=== PATIENT | female | born 1965 | race Hispanic/Latino ===

== ENCOUNTER → 2022-10-11 | Outpatient (CLI) | payer BC ==
[~2022-10-11] MED LIST: GLIP10TA9 PO; LEVO75 PO; LOSA25TA41 PO; METF-446 PO; METO5TAB2 PO; MULT-40 PO; PANT40TA54 PO; PRAV20TA4 PO
[2022-10-11 16:23] LABS: BASOPHILS # (AUTO) 0.06 K/uL (0.00-0.20); BASOPHILS % (AUTO) 0.8 % (0.0-5.0); EOSINOPHILS # (AUTO) 0.15 K/uL (0.00-0.70); EOSINOPHILS % (AUTO) 1.9 % (0.0-8.0); HEMATOCRIT 38.9 % (36-48); IMMATURE GRANULOCYTE ABSOLUTE 0.02 K/uL (0-1); LYMPHOCYTES # (AUTO) 3.4 K/uL (1.0-4.8); LYMPHOCYTES % (AUTO) 42.8 % (21.0-51.0); MEAN CORPUSCULAR HEMOGLOBIN 30.4 pg (27.0-33.0); MEAN CORPUSCULAR HGB CONC 34.7 g/dL (32.0-36.0); MEAN CORPUSCULAR VOLUME 87.6 fL (79-99); MONOCYTES # (AUTO) 0.7 K/uL (0.1-1.0); MONOCYTES % (AUTO) 8.4 % (3.0-13.0); NEUTROPHILS # (AUTO) 3.6 K/uL (1.8-7.7); NEUTROPHILS % (AUTO) 45.8 % (40.0-77.0); PLATELET COUNT (AUTO) 216 K/uL (130-400); RED BLOOD CELL COUNT(AUTO) 4.44 MIL/uL (4.00-5.50); RED CELL DISTRIBUTION WIDTH 12.9 % (11.0-15.5); WHITE BLOOD COUNT (AUTO) 7.9 K/uL (4.8-10.8)
[2022-10-11 16:51] LABS: T4 (THYROXINE) 13.9 ug/dL (4.7-13.3); THYROID STIMULATING HORMONE 0.34 uIU/mL (0.36-3.74)
== END | disposition home or self-care (01) ==
LOC: LAB 15:29
PROVIDERS: ATTEND Internal Medicine Cardiovascular Disease
DX: I10 Essential (primary) hypertension (principal); R00.0 Tachycardia, unspecified
CPT/HCPCS: 36415; 84436; 84443; 84479; 85025

== ENCOUNTER 2023-06-09 17:40 | Emergency (ER) | payer BC ==
[~2023-06-09] VITALS: Ht 157.5 cm; Wt 65.8 kg
[2023-06-09] MEDS: DEXAMETHASONE SOD PHOSPHATE 4 MG/ML 1ML VIAL IVP ONE (18:27)
[2023-06-09] MEDS: FAMOTIDINE 20MG VIAL IV ONE (18:27)
[2023-06-09] MEDS: EPINEPHRINE PF 1MG (1:1,000) 1 MG/ML AMP IM ONE ×2 (19:26→21:36)
[2023-06-09] MEDS: DiphenhydrAMINE HCL 50 MG/ML VIAL IV ONE (19:27)
[2023-06-09 21:39] VITALS: BP 135/76; PULSE 100; RESP 18; O2SAT 97
[2023-06-09] MEDS ORDERED: DIPH50 PO (21:44)
[2023-06-09] MEDS ORDERED: EPIN0.3P2 IM (21:44)
[2023-06-09] MEDS ORDERED: PRED20TA3 PO (21:44)
== END 2023-06-09 22:03 | disposition home or self-care (01) ==
LOC: EDH 17:40
DX: T78.3XXA Angioneurotic edema, initial encounter (principal); I10 Essential (primary) hypertension; E11.9 Type 2 diabetes mellitus without complications; Z88.8 Allergy status to other drugs, medicaments and biological substances; Z79.899 Other long term (current) drug therapy; Z90.710 Acquired absence of both cervix and uterus
CPT/HCPCS: 99284; 96374; 96375; 96372 ×2; J1100; J1200; J3490; J0171 ×2